=== PATIENT | female | born 1960 | race Caucasian/White ===

== ENCOUNTER → 2018-01-20 | Outpatient (CLI) | payer OTHER | LOC: ULTRA 10:58 | DX: R10.31 Right lower quadrant pain (principal); R10.2 Pelvic and perineal pain ==

== ENCOUNTER → 2018-06-22 | Outpatient (CLI) | payer OTHER | LOC: BC 10:40 → RAD 10:40 | DX: Z12.31 Encounter for screening mammogram for malignant neoplasm of breast (principal); M43.22 Fusion of spine, cervical region; M50.33 Other cervical disc degeneration, cervicothoracic region; M43.12 Spondylolisthesis, cervical region; R53.82 Chronic fatigue, unspecified; E78.00 Pure hypercholesterolemia, unspecified; Z79.899 Other long term (current) drug therapy ==

== ENCOUNTER → 2018-08-21 | Outpatient (CLI) | payer OTHER | LOC: CAT 14:55 | DX: Z13.6 Encounter for screening for cardiovascular disorders (principal); E78.00 Pure hypercholesterolemia, unspecified; I25.10 Atherosclerotic heart disease of native coronary artery without angina pectoris ==

== ENCOUNTER → 2018-08-21 | Outpatient (CLI) | payer OTHER | LOC: RAD 14:53 | DX: R07.9 Chest pain, unspecified (principal) ==

== ENCOUNTER → 2018-10-14 | Outpatient (CLI) | payer OTHER ==
[~2018-10-14] VITALS: Ht 170.2 cm; Wt 62.1 kg
[~2018-10-14] MED LIST: B COMPLEX1 EACH PO; FLONASE 0.05%50 MCG NASAL; LIPITOR 20 MG T20 M1 PO; MEDROLDOSEPACK PO; MULTI VITAMIN1 EACH PO; NEURONTIN300 MG PO; ONDANSETRON HCL4 M2 PO; SULINDAC 150 M150 MG PO; SYSTANE 0.3-0.415 ML OPHTHALMIC; TYLENOL EXTRA500 MG PO; VERAPAMIL HCL120 MG PO; VITAMIN D3400 UNIT PO; WELLBUTRIN SR150 MG PO; ZANAFLEX4 MG PO; ZYRTEC10 M4 PO; ZYRTEC10 M5 PO
--- NOTE | ~2018-10-14 | HPC ---
[facility] [address] [place] [address] PAIN MANAGEMENT CONSULTATION Name: NONI PATEL [facility] [id number] Admission: 10/14/18 ������������������ Attend Phys: Roslyn Perales MD Discharge: ������������������ Date of : 60 Report #: [id number] THIS REPORT FOR: //name// CC: Roslyn Hernandez MD DATE OF SERVICE: 10/14/2018 CHIEF COMPLAINT: The pain improved a lot with the Medrol Dosepak, was started to come back after I stopped it. HISTORY: The patient is a 57-year-old female who has seen in the pain clinic because of chronic neck pain. She has noted some improvement in her pain after the Medrol Dosepak. States that she was able to rotate her head from side to side and look up and down better after the Medrol Dosepak. After she took the last tablet. She has noticed a worsening of her pain and it seems to be reverting to it is old level of discomfort. She has had fusion of C3 through C7 as you may recall and noted that her pain became worse over the last 4 months. Notes that because of the arthritic changes in her head, rotating her head from side to side is limited. This makes driving more problematic. Continues to take the Clinoril. ALLERGIES: PENICILLIN AND ASPIRIN. MEDICATIONS: Systane 0.3/0.4% eyedrops p.r.n., Flonase 0.05% nasal spray b.i.d., Zyrtec 10 mg, Zanaflex 4 mg t.i.d., vitamin D3 4000 units, multivitamins, vitamin B complex, Tylenol Extra Strength 500 mg q. 6 hours, Lipitor 20 mg, sulindac 150 mg, Wellbutrin-SR 150 mg, verapamil 120 mg, and Zofran 4 mg. PAIN CLINIC ASSESSMENT/PQRS: 1. History of osteoarthritis involving her neck with changes. The patient is not being treated for rheumatoid arthritis. 2. Height 5 feet 7 inches, weight 136 pounds, BMI is 21.4. 3. Vital signs: Blood pressure 117/68, pulse 54, respiratory rate 14, room air saturation 98%. 4. Pain intensity 09/23. 5. Fall history. The patient has not fallen in the last 3 months. 6. Blood thinner. The patient is not on a blood thinning medication. 7. Hypertension. The patient is not being treated for hypertension. 8. Opioids greater than 6 weeks. The patient is not on a chronic opioid medication. 9. Risk assessment tool. 10. Functional assessment tool. 11. Recreational drug use. The patient denies use of recreational drugs. [address] [address] PAIN MANAGEMENT CONSULTATION Name: JORGENONI [facility] #[facility] [id number] Admission: 10/14/18 ������������������ Attend Phys: Roslyn Perales MD Discharge: ������������������ Date of : 60 Report #: [id number] 12. Tobacco: The patient denies use of tobacco. 13. Alcohol: The patient drinks alcoholic beverages on occasion. PHYSICAL EXAMINATION: GENERAL: The patient is a well-developed, well-nourished white female. Appears her stated age. She is alert and oriented x 3. Affect is appropriate. Speech is fluent. HEENT: Normocephalic, atraumatic. Extraocular eye muscles intact. The patient has some significant in movement of her neck secondary to C3 through C7 fusion. Complains of some pain and discomfort in her shoulders down into her arms. HEART: Regular rate. ABDOMEN: Nontender. CHEST: Clear to auscultation. EXTREMITIES: Muscle strength is judged to be 5-/5 for the major muscle groups in the upper extremity. Lower extremity judged to be 5/5 in lower extremity without significant scoliosis, kyphosis, or lordosis. Well-healed scar in the lower portion of her back. Deep tendon reflexes for the left and right biceps +1. IMPRESSION: 1. Cervical radiculopathy involving the left arm with flare up about 4 months ago, improve with a Medrol Dosepak for a week or so. 2. Hyperlipidemia. 3. Nicotine dependence. 4. Hypertension. 5. Arthritis. 6. History of colonic polyp. 7. Lumbar stenosis with neurogenic claudication, ovarian. 8. History of ovarian cyst. 9. Pancreatitis in the past. 10. Uterine fibroids. RECOMMENDATIONS: We will try the patient on gabapentin 300 mg t.i.d. and increase this as tolerated. We explained to the patient that sometimes it might be 1800 mg before some might note some effectiveness with use of gabapentin. We discussed the risks and benefits of the procedure as well as some of the side effects. She will try the medication with hopes that things will improve. We explained that chronic use of steroid medication on a long-term basis would probably develop symptoms consistent with chronic use of steroid medications. [facility] [address] [place] [address] PAIN MANAGEMENT CONSULTATION Name: NONI PATEL Room #: REG CLI Estefanía#: [id number] Admission: 10/14/18 ������������������ Attend Phys: Roslyn Perales MD Discharge: ������������������ Date of : 60 Report #: [id number] We would like to thank you for letting us participate in her care. We hope she continues to improve. ��������������������������������������������� ���������������������������������������� By: ��������������������������������������������� 1422 1721 Roslyn Perales MD /PMT
[2018-10-14 11:52] VITALS: BP 117/68
--- NOTE | 2018-10-14 12:05 | NUR ---
Pain Clinic Assessment: 1. History of Osteoarthritis: SPINE B/L HANDS B/L SHOULDERS LEFT KNEE History of Rheumatoid Arthritis: NONE 2. Height: 5 ft. 7 in. 170.2 cm. Weight: 136.8 lb. oz. 62.052 kg. Patient's BMI: 21.4 3. Vital Signs: BP: 117/68 Pulse: 54 Resp: 14 Temp: 02 Sat: 98 ECG Mon: 4. Pain Intensity: 4 5. Fall Risk: Dizziness: Y Needs help standing or walking: N Fallen in the last 3 months: N Fall risk comments: 6. Patient on Blood Thinner: None 7. History of Hypertension: Y 8. Opioid Therapy greater than 6 weeks: Opiate Contract Signed: 9. Risk Assessment Tool Provided: 10. Functional Assessment Tool: 11. Recreational Drug Use: Never Drug Type: Tobacco Use: Never Smoker Tobacco Type: Amount or Packs/day: How Many Years: Alcohol Use: Yes Frequency: Quant:
== END ==
LOC: PAIN 07:20
DX: M54.12 Radiculopathy, cervical region (principal); M48.062 Spinal stenosis, lumbar region with neurogenic claudication; M19.90 Unspecified osteoarthritis, unspecified site; E78.5 Hyperlipidemia, unspecified; I10 Essential (primary) hypertension; D25.9 Leiomyoma of uterus, unspecified; F17.210 Nicotine dependence, cigarettes, uncomplicated; K86.1 Other chronic pancreatitis; Z86.010 Personal history of colon polyps; Z87.42 Personal history of other diseases of the female genital tract

== ENCOUNTER → 2019-01-08 | Outpatient (CLI) | payer OTHER ==
[~2019-01-08] VITALS: Ht 170.2 cm; Wt 59.4 kg
[~2019-01-08] MED LIST changes: +MOBIC15 MG PO; +ROBAXIN500 MG PO
--- NOTE | ~2019-01-08 | HPC ---
[facility] [place] [address] PAIN MANAGEMENT CONSULTATION Name: NONI PATEL Room #: REG [facility] Joel.#: [id number] Admission: 01/08/19 ������������������ Attend Phys: Roslyn Perales MD Discharge: ������������������ Date of : 60 Report #: [id number] THIS REPORT FOR: //name// CC: Roslyn Hernandez DATE OF SERVICE: 01/08/2019 CHIEF COMPLAINT: Left neck pain and left arm pain. HISTORY: The patient is a 58-year-old female who has been followed in the pain clinic because of chronic neck and arm pain. 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 She has used gabapentin. She still has pain, which is problematic. She takes 900 mg at bedtime. As you may recall, she has had a number of surgeries. She had surgery in 1997 and in 2004. She has undergone fusion of her neck at the C3 through C7 area. He has limited rotation and movement of her neck because of the surgeries. ALLERGIES: ASPIRIN, PENICILLIN. CURRENT MEDICATIONS: Systane 0.3/0.4% eyedrops p.r.n., Flonase 0.05% nasal spray b.i.d., Zyrtec 10 mg, Zanaflex 4 mg t.i.d., vitamin D3 400 units, multivitamins, vitamin B complex, Tylenol Extra Strength 500 mg q.6 hours, Lipitor 20 mg, sulindac 150 mg, Wellbutrin 150 mg, verapamil 120 mg, Zofran 4 mg. PAIN CLINIC ASSESSMENT/PQRS: 1. The patient has history of osteoarthritis involving her neck, cervical spine. Has some discomfort in her left hand and shoulder. She is not being treated for rheumatoid arthritis. 2. Height 5 feet 7 inches, weight 131 pounds, BMI is 20. 3. VITAL SIGNS: Blood pressure 137/81, pulse 53, respiratory rate is 14, and saturation is 100%. 4. Pain intensity 3-4/10. 5. Fall history: The patient has not fallen in the last 3 months. 6. Blood thinner. The patient is not on a blood thinning medication. 7. Hypertension. The patient is being treated for hypertension. 8. Opioids greater than 6 weeks. The patient is not on opioid regimen. 9. Risk assessment tool, low for opioid use. 10. Functional assessment tool 47/. 11. Recreational drug use. The patient denies use of recreational drugs. 12. Alcohol: The patient occasionally drinks alcoholic beverages. PHYSICAL EXAMINATION: GENERAL: The patient is a well-developed, well-nourished white female. Appears her stated age. She is alert and oriented x 3. Her affect is appropriate. [address] [address] PAIN MANAGEMENT CONSULTATION Name: JORGENONI Room #: REG CL Estefanía#: [id number] Admission: 01/08/19 ������������������ Attend Phys: Roslyn Perales MD Discharge: ������������������ Date of : 60 Report #: [id number] Speech is fluent. HEENT: Normocephalic, atraumatic. Mucous membranes are moist. NECK: With limited range of motion. She has had fusion at C3 through C6. Flexion and extension, left and right lateral rotation limited. The patient continues to have pain when she lifts her neck and changes position. The patient has a well-healed scar on the anterior portion of her neck. The patient without JVD or adenopathy. HEART: Regular rate. ABDOMEN: Nontender. CHEST: Clear. EXTREMITIES: Upper extremity muscle strength judged to be 5-/5 for the major muscle groups in the upper extremity. Lower extremity muscle strength appears to be 5-/5 for the lower extremities. The patient without significant scoliosis, kyphosis or lordosis. She has a well-healed scar in the lower portion of her back. IMPRESSION: 1. Cervical radiculopathy involving the left arm. 2. Hyperlipidemia. 3. Nicotine dependence. 4. Hypertension. 5. Arthritis. 6. History of colonic polyps. 7. Lumbar stenosis with neurogenic claudication. 8. Pancreatitis in the past. 9. Uterine fibroids. 10. Ovarian cyst. RECOMMENDATIONS: We discussed treatment options with the patient. At this juncture, we will continue with conservative approach. The patient has been using the gabapentin. She has had some increased sedation with use of the medication. She continues to have pain in the neck and shoulder area. She has used Robaxin in the past. She would like to try this in place of Zanaflex. She also feels that Sulindac is helpful, but use of Mobic 15 mg daily, seems to have been helpful in the past and she would like to give this medication another try. She has had some sedation with the gabapentin. We will have her try a test dose of Gralise, this is gabapentin, slow release. She will take 1800 mg of this medication. She will take it with the evening meal. She will note its efficacy. Hopefully, she will find that this medication is beneficial. Hopefully, the Robaxin will be helpful. Hopefully, the Meloxicam will be beneficial as well. The patient will call us in a couple of weeks and tell us how things are going. If she finds that this medication is more beneficial, we will continue with the Gralise to help control her pain and discomfort. We [address] [place] [address] PAIN MANAGEMENT CONSULTATION Name: NONI PATEL Room #: REG [facility]..#: [id number] Admission: 01/08/19 ������������������ Attend Phys: Roslyn Perales MD Discharge: ������������������ Date of : 60 Report #: [id number] would like to thank you for letting us participate in her care. We hope she continues to improve. ��������������������������������������������� ���������������������������������������� By: ��������������������������������������������� 1620 0440 Roslyn Perales MD /nt
[2019-01-08 12:49] VITALS: BP 137/81
--- NOTE | 2019-01-08 12:55 | NUR ---
Pain Clinic Assessment: 1. History of Osteoarthritis: SPINE B/L HANDS B/L SHOULDERS LEFT KNEE History of Rheumatoid Arthritis: NONE 2. Height: 5 ft. 7 in. 170.2 cm. Weight: 131.0 lb. oz. 59.421 kg. Patient's BMI: 20.5 3. Vital Signs: BP: 137/81 Pulse: 53 Resp: 14 Temp: 02 Sat: 100 ECG Mon: 4. Pain Intensity: 3-4 5. Fall Risk: Dizziness: N Needs help standing or walking: N Fallen in the last 3 months: N Fall risk comments: 6. Patient on Blood Thinner: None 7. History of Hypertension: Y 8. Opioid Therapy greater than 6 weeks: N Opiate Contract Signed: 9. Risk Assessment Tool Provided: LOW RISK 08/16 10. Functional Assessment Tool: 11. Recreational Drug Use: Never Drug Type: Tobacco Use: Never Smoker Tobacco Type: Amount or Packs/day: How Many Years: Alcohol Use: Yes Frequency: Monthly Quant:
== END ==
LOC: PAIN 06:48
DX: M54.12 Radiculopathy, cervical region (principal); M48.062 Spinal stenosis, lumbar region with neurogenic claudication; M79.602 Pain in left arm; I10 Essential (primary) hypertension; M19.90 Unspecified osteoarthritis, unspecified site; F17.200 Nicotine dependence, unspecified, uncomplicated; D25.9 Leiomyoma of uterus, unspecified; E78.5 Hyperlipidemia, unspecified

== ENCOUNTER → 2019-08-02 | Outpatient (CLI) | payer OTHER | LOC: PAIN 07-14 06:58 → BC 11:16 | DX: Z12.31 Encounter for screening mammogram for malignant neoplasm of breast (principal) ==

== ENCOUNTER → 2020-01-05 | Outpatient (CLI) | payer OTHER ==
[~2020-01-05] VITALS: Ht 170.2 cm; Wt 56.8 kg
[~2020-01-05] MED LIST changes: +METHADONE HCL 110 M1 PO; +MOVE FREE JOIN1 EACH PO; +ROBAXIN 750 MG750 MG PO
[2020-01-05 10:20] VITALS: BP 122/58
--- NOTE | 2020-01-05 10:43 | NUR ---
Pain Clinic Assessment: 1. History of Osteoarthritis: SPINE B/L HANDS B/L SHOULDERS LEFT KNEE History of Rheumatoid Arthritis: NONE 2. Height: 5 ft. 7 in. 170.2 cm. Weight: 125.2 lb. oz. 56.790 kg. Patient's BMI: 19.6 3. Vital Signs: BP: 122/58 Pulse: 61 Resp: 14 Temp: 02 Sat: 100 ECG Mon: 4. Pain Intensity: 3 5. Fall Risk: Dizziness: Y Needs help standing or walking: N Fallen in the last 3 months: N Fall risk comments: 6. Patient on Blood Thinner: None 7. History of Hypertension: Y 8. Opioid Therapy greater than 6 weeks: N Opiate Contract Signed: 9. Risk Assessment Tool Provided: LOW RISK 08/16 10. Functional Assessment Tool: 11. Recreational Drug Use: Never Drug Type: Tobacco Use: Former Smoker Tobacco Type: Amount or Packs/day: How Many Years: Alcohol Use: Yes Frequency: Special Occasions Quant:
--- NOTE | 2020-01-18 14:10 | HPC ---
[facility] [place] [address] PAIN MANAGEMENT CONSULTATION Name: NONI PATEL Room #: REG [facility].#: [id number] Admission: 01/05/20 Attend Phys: Roslyn Perales MD Discharge: Date of : 60 Report #: [id number] THIS REPORT FOR: cc: Randy Hernandez,Roslyn Rodriguez MD ~ CC: Roslyn Hernandez DATE OF SERVICE: 01/05/2020 CHIEF COMPLAINT: Neck pain, which has worsened. HISTORY: The patient is a 59-year-old female who has been followed in the pain clinic. As you may recall, she has chronic neck and arm pain. 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 As you may recall, she has had significant surgery in her neck. She had surgery in 2004 as well as 1997. This has left her with a fusion of her neck from C3 through C7. She has limited rotation in movement. This is because of the previous surgeries. She finds that her neck pain has increased. She feels that tizanidine may not be working as well. ALLERGIES: ASPIRIN, PENICILLIN. CURRENT MEDICATIONS: Systane 0.3/0.4% eyedrops p.r.n., Flonase 0.05% nasal spray b.i.d., Zyrtec 10 mg, Zanaflex 4 mg t.i.d., vitamin D3 400 units, multivitamins, vitamin B complex, Tylenol Extra Strength 500 mg every 6 hours, Lipitor 20 mg, sulindac 150 mg, Wellbutrin 150 mg, verapamil 120 mg, Zofran 4 mg. PAIN CLINIC ASSESSMENT AND PQRS: 1. The patient has a history of osteoarthritis involving her neck with cervical changes and osteoarthritis. 2. The patient is not being treated for rheumatoid arthritis. 3. Height 5 feet 7 inches, weight 125 pounds, BMI is 19. 4. Vital Signs: Blood pressure is 122/58, pulse 61, respiratory rate 14, room air saturation is 100%. 5. Pain intensity 08/23. 6. Fall history: The patient has not fallen in the last 3 months. 7. Blood thinner. The patient is not on a blood thinning medication. 8. Hypertension. The patient is being treated for hypertension. 9. Opioids greater than 6 weeks. The patient receives medication from her primary. 10. Risk assessment tool, low. 11. Functional assessment tool 57/70. 12. Recreational drug [place] [address] PAIN MANAGEMENT CONSULTATION Name: NONI PATEL Room #: REG [facility]#: [id number] Admission: 01/05/20 Attend Phys: Roslyn Perales MD Discharge: Date of : 60 Report #: [id number] 13. Tobacco: The patient is a former smoker. 14. Alcohol: The patient occasionally drinks alcoholic beverages on special occasions. PHYSICAL EXAMINATION: GENERAL: The patient is a well-developed, well-nourished white female. Appears her stated age. She is alert and oriented x 3. Her affect is appropriate. Speech is fluent. HEENT: Normocephalic, atraumatic. Extraocular eye muscles intact. Sclerae nonicteric. Mucous membranes are moist. The patient is wearing a mask. NECK: Limited range of motion. She has fusion from C3 through C6. Left and right lateral rotation is limited. The patient has pain when she lifts her neck and changes positions. We notes some [id number] sounds with movement of her neck. The patient has a well-healed scar in the anterior portion of her neck. The patient without JVD or adenopathy. HEART: Regular rate. ABDOMEN: Nontender. CHEST: Clear. EXTREMITIES: Upper extremity muscle strength judged to be 5-/5 for the major muscle groups in the upper extremity. Lower extremity muscle strength judged to be 5-/5 for the lower extremities. The patient without significant scoliosis, kyphosis or lordosis. She has a well-healed scar in the lower portion of her back. IMPRESSION: 1. Cervical radiculopathy history involving the left arm in the past. 2. Hyperlipidemia. 3. Nicotine dependence. 4. Hypertension. 5. Arthritis. 6. History of colonic polyps. 7. Lumbar stenosis with neurogenic claudication. 8. Pancreatitis in the past. 9. Uterine fibroids. 10. History of ovarian cyst. RECOMMENDATION: The patient feels that she would like to try Robaxin instead of tizanidine. The patient tries 750 mg 1 p.o. b.i.d. She will also try Celebrex and monitor her GI tract. Given that the patient continues to have pain and discomfort, which is quite problematic and beginning to limit her activities we have discussed the possibility of methadone as an opioid to help with her pain. We discussed the benefits of methadone. It has properties, which other opioids do not have. It can be helpful with nerve pain. We will have the patient try methadone 5 mg b.i.d. She will also continue with the Robaxin 750 mg. We will monitor her progress. Hopefully, she will find that this medication is helpful and enable her to engage in activities with less pain and discomfort. [address] [address] PAIN MANAGEMENT CONSULTATION Name: NONI PATEL [facility] [id number] Admission: 01/05/20 Attend Phys: Roslyn Perales MD Discharge: Date of : 60 Report #: [id number] We would like to thank you for letting us participate in her care. We hope she continues to improve. <ELECTRONICALLY SIGNED> By: Roslyn Perales MD 01/18/20 1410 [id number] [id number] Roslyn Perales MD /nt
== END ==
LOC: PAIN 07:03
PROVIDERS: ATTEND Anesthesiology Pain Medicine
DX: M48.061 Spinal stenosis, lumbar region without neurogenic claudication (principal); M19.90 Unspecified osteoarthritis, unspecified site; M54.12 Radiculopathy, cervical region; E78.5 Hyperlipidemia, unspecified; I10 Essential (primary) hypertension; F17.200 Nicotine dependence, unspecified, uncomplicated; Z90.710 Acquired absence of both cervix and uterus; Z79.891 Long term (current) use of opiate analgesic

== ENCOUNTER → 2020-02-04 | Outpatient (CLI) | payer OTHER ==
[~2020-02-04] VITALS: Ht 170.2 cm; Wt 56.0 kg
[~2020-02-04] MED LIST changes: +CELEBREX 200 M200 MG PO
[2020-02-04 09:06] VITALS: BP 132/75
--- NOTE | 2020-02-04 09:07 | NUR ---
Pain Clinic Assessment: 1. History of Osteoarthritis: SPINE B/L HANDS B/L SHOULDERS LEFT KNEE History of Rheumatoid Arthritis: NONE 2. Height: 5 ft. 7 in. 170.2 cm. Weight: 123.4 lb. oz. 55.974 kg. Patient's BMI: 19.3 3. Vital Signs: BP: 132/75 Pulse: 61 Resp: 14 Temp: 02 Sat: 98 ECG Mon: 4. Pain Intensity: 1-2 5. Fall Risk: Dizziness: N Needs help standing or walking: N Fallen in the last 3 months: N Fall risk comments: 6. Patient on Blood Thinner: None 7. History of Hypertension: Y 8. Opioid Therapy greater than 6 weeks: N Opiate Contract Signed: 02/04/20 9. Risk Assessment Tool Provided: LOW RISK 08/16 10. Functional Assessment Tool: 11. Recreational Drug Use: Never Drug Type: Tobacco Use: Former Smoker Tobacco Type: Amount or Packs/day: How Many Years: Alcohol Use: Yes Frequency: Quant:
--- NOTE | 2020-02-16 14:41 | HPC ---
[facility] [place] [address] PAIN MANAGEMENT CONSULTATION Name: NONI PATEL Room #: REG [facility]#: [id number] Admission: 02/04/20 Attend Phys: Roslyn Perales MD Discharge: Date of : 60 Report #: [id number] THIS REPORT FOR: cc: Randy Hernandez,Roslyn Rodriguez MD ~ CC: Roslyn Hernandez DATE OF SERVICE: 02/04/2020 CHIEF COMPLAINT: Neck and left arm pain. HISTORY: The patient is a 59-year-old female, who has been followed in the Pain Clinic. As you recall, she has had chronic neck pain. She has had significant surgery. She had surgery in 2004 as well as 1997. She has undergone fusion of her neck from C3 through C7. She has limited rotation. She has been helped with her current medication regimen. She feels that methadone has been helpful. She rates her pain as a 1/10 today. She notes that the medication lasts for most of the day. She takes Tylenol in the evening. Overall, this current medical regimen has been working reasonably well and she would like to continue it. She has had no complications. ALLERGIES: ASPIRIN, PENICILLIN. CURRENT MEDICATIONS: Systane 0.3/0.4% eyedrops, Flonase 0.05% nasal spray b.i.d., Zyrtec 10 mg, Zanaflex 4 mg t.i.d., vitamin D3 400 units, multivitamins, vitamin B complex, Tylenol Extra Strength 500 mg p.r.n., Lipitor 20 mg, sulindac 150 mg, Wellbutrin 150 mg, verapamil 120 mg, Zofran 4 mg, methadone 10 mg daily. PAIN CLINIC ASSESSMENT AND PQRS: 1. The patient has a history of osteoarthritis involving her neck with cervical changes and osteoarthritis. 2. The patient is not being treated for rheumatoid arthritis. 3. Height 5 feet 7 inches, weight 123 pounds, BMI is 19. 4. Vital signs: Blood pressure 132/75, pulse 61, respiratory rate 14, room air saturation 98%. 5. Pain intensity: 06/25. 6. Fall history: The patient has not fallen since we saw her last. 7. Blood thinner: The patient is not on a blood thinning medication. 8. Hypertension: The patient is being treated for hypertension. 9. Opioids therapy greater than 6 weeks: The patient receives medications from the Pain Clinic. 10. Risk assessment tool: Low risk for opioid use. 11. Functional assessment tool: 57/70. 12. Recreational drug use: [place] [address] PAIN MANAGEMENT CONSULTATION Name: NONI PATEL Room #: REG [facility] Estefanía#: [id number] Admission: 02/04/20 Attend Phys: Roslyn Perales MD Discharge: Date of : 60 Report #: [id number] 13. Tobacco: The patient is a former smoker. 14. Alcohol: The patient occasionally drinks alcoholic beverages. PHYSICAL EXAMINATION: GENERAL: The patient is a well-developed, well-nourished, white female. Appears her stated age. She is alert and oriented x 3. Her affect is appropriate. Speech is fluent. HEENT: Normocephalic, atraumatic. Extraocular eye muscles intact. Sclerae nonicteric. Mucous membranes are moist. The patient is wearing a facial covering. NECK: The patient exhibits limited range of motion. She has had fusion from C3 through C6. Left and right lateral rotation is limited. The patient has some pain when she lifts her neck and changes position. Notes some feds-qw-ofqu sounds with movement of her neck. The patient has a well-healed scar in the anterior portion of her neck without JVD or adenopathy. HEART: Regular rate. ABDOMEN: Nontender. CHEST: Clear. MUSCULOSKELETAL: Upper extremity muscle strength is judged to be 5-/5 for the major muscle groups in the upper extremity. Lower extremity muscle strength is judged to be 5-/5 for the major muscle groups in the lower extremity. The patient is without significant scoliosis, kyphosis or lordosis. She has a well-healed scar in the lower portion of her back. IMPRESSION: 1. Cervical radiculopathy history involving the left arm in the past. 2. Hyperlipidemia. 3. Nicotine dependence. 4. Hypertension. 5. Arthritis. 6. History of colonic polyps. 7. Lumbar stenosis with neurogenic claudication. 8. Pancreatitis in the past. 9. Uterine fibroids. 9. History of ovarian cyst. RECOMMENDATIONS: We discussed treatment options with the patient. At this juncture, she feels that the methadone has been helpful, it lasts a reasonable amount of time up to about 12 hours. After that, she is taking Tylenol and finds that that seems to be a reasonably good formula. She continues with Celebrex. She will monitor her GI tract. She is aware that opioid medications can become more problematic for some people, they can develop dependency and addiction. The patient is showing no signs of addiction, no signs of dependency. She also will continue with Robaxin for muscle relaxation. 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 She feels that the use of methadone has made her activities of daily living much more [address] [place] [address] PAIN MANAGEMENT CONSULTATION Name: NONI PATEL Room #: REG [facility].#: [id number] Admission: 02/04/20 Attend Phys: Roslyn Perales MD Discharge: Date of : 60 Report #: [id number] endurable. A script for her medications have been rewritten. She will call us if she has any concerns. We would like to thank you for letting us participate in her care. We hope she continues to improve. <ELECTRONICALLY SIGNED> By: Roslyn Perales MD 02/16/20 [id number] [id number] Roslyn Perales MD /nt
== END ==
LOC: PAIN 06:45
PROVIDERS: ATTEND Anesthesiology Pain Medicine
DX: M54.12 Radiculopathy, cervical region (principal); E78.5 Hyperlipidemia, unspecified; I10 Essential (primary) hypertension; M19.90 Unspecified osteoarthritis, unspecified site; M48.062 Spinal stenosis, lumbar region with neurogenic claudication; D25.9 Leiomyoma of uterus, unspecified; F17.200 Nicotine dependence, unspecified, uncomplicated; Z87.42 Personal history of other diseases of the female genital tract; Z87.19 Personal history of other diseases of the digestive system; Z86.010 Personal history of colon polyps; Z88.8 Allergy status to other drugs, medicaments and biological substances; Z79.899 Other long term (current) drug therapy

== ENCOUNTER → 2020-03-01 | Outpatient (CLI) | payer OTHER ==
[~2020-03-01] VITALS: Ht 170.2 cm; Wt 56.5 kg
--- NOTE | ~2020-03-01 | HPC ---
[facility] [place]ena [place] [address] PAIN MANAGEMENT CONSULTATION Name: NONI PATEL Room #: REG [facility].#: [id number] Admission: 03/01/20 Attend Phys: Roslyn Perales MD Discharge: Date of : 60 Report #: [id number] THIS REPORT FOR: cc: Randy Hernandez,Roslyn Rodriguez MD ~ CC: Roslyn Hernandez DATE OF SERVICE: 03/01/2020 CHIEF COMPLAINT: Left arm and neck pain. HISTORY: The patient is a 59-year-old female who has been followed in the pain clinic because of chronic pain. As you may recall, she has had surgery on a number of occasions. She had surgery in 2004. She also had surgery in 1997. She has undergone a fusion in the neck area. She has been fused from C3 through C7. She does have limited range of motion. She returns today indicating that her medications are helpful. She has noticed some recurrence of her pain during the course of the day, but overall, still feels that things are going much better than before her current medical regimen. She has returned today with the hopes of having her medications renewed. She has had no complication from their use. She does find that the Robaxin is beneficial. She has been using it daily. She has also found Tylenol helpful. ALLERGIES: ASPIRIN, PENICILLIN. CURRENT MEDICATIONS: Systane 0.3/0.4% eyedrops, Flonase 0.05% nasal spray b.i.d., Zyrtec 10 mg, Zanaflex 4 mg t.i.d., vitamin D3 400 units, multivitamins, vitamin B complex, Tylenol Extra Strength 500 mg, Lipitor 20 mg, sulindac 150 mg, Wellbutrin 150 mg, verapamil 120 mg, Zofran 4 mg, methadone 10 mg daily. PAIN CLINIC ASSESSMENT/PQRS: 1. The patient has history of osteoarthritis involving her neck and cervical changes because of osteoarthritis. 2. The patient is not being treated for rheumatoid arthritis. 3. Height 5 feet 7 inches, weight 124 pounds, BMI is 19. 4. Vital signs: Blood pressure 116/71, pulse 65, respiratory rate 14, room air saturation 100%. 5. Pain intensity 06/25. 6. Fall history: The patient has not fallen in the last 3 months. 7. Blood thinner. The patient is not on a blood thinning medication. 8. History of hypertension. The patient is being treated for hypertension. 9. Opioids greater than 6 weeks. The patient receives medication from the pain clinic. 10. Risk assessment tool, [place] [address] PAIN MANAGEMENT CONSULTATION Name: NONI PATEL Carrillo Room #: REG [facility] Estefanía#: [id number] Admission: 03/01/20 Attend Phys: Roslyn Perales MD Discharge: Date of : 60 Report #: [id number] 11. Functional assessment tool 57/70. 12. Recreational drug use. The patient denies. 13. Tobacco: The patient is a former smoker. 14. Alcohol: The patient occasionally drinks alcoholic beverages. PHYSICAL EXAMINATION: GENERAL: The patient is a well-developed, well-nourished white female. Appears her stated age. She is alert and oriented x 3. Her affect is appropriate. Speech is fluent. HEENT: Normocephalic, atraumatic. Extraocular eye muscles intact. Sclerae nonicteric. Mucous membranes are moist. The patient is wearing a facial covering. NECK: With decreased range of motion. The patient has had a fusion from C3 through C6. Left and right lateral motion was limited. The patient notes increased pain and discomfort when she extends her neck and changes position. Complains of some pyro-rv-ymii sounds with movement of her neck. She has a well-healed scar in the anterior portion of her neck without JVD or adenopathy. HEART: Regular rate. ABDOMEN: Nontender. CHEST: Clear. MUSCULOSKELETAL: Upper extremity muscle strength judged to be 5-/5 for the major muscle groups in the upper extremity. Lower extremity muscle strength 5-/5 for the major muscle groups in the lower extremity. The patient without significant scoliosis, kyphosis or lordosis. She has a well-healed scar in the lower portion of her back as well. IMPRESSION: 1. Cervical radiculopathy with history of left arm pain in the past. 2. Hyperlipidemia. 3. Nicotine dependence. 4. Hypertension. 5. Arthritis. 6. History of colonic polyps. 7. Lumbar stenosis with neurogenic claudication. 8. Pancreatitis in the past. 9. Uterine fibroids. 10. History of ovarian cyst. RECOMMENDATIONS: We discussed treatment options with the patient. At this juncture, we will continue with her medications. She feels that methadone continues to be helpful. She feels that Tylenol is beneficial. She has noticed that the Robaxin is helpful. She has been taking it daily. Now, she is taking it twice a day. She is not having any real problems with her GI tract. She will call us if she has any concerns. Again, we have discussed the problems with opioid medications. They can become less effective as time goes on because of development of tolerance. A script for her medications have been rewritten [place] [id number] PAIN MANAGEMENT CONSULTATION Name: NONI PATEL Room #: REG [facility].#: [id number] Admission: 03/01/20 Attend Phys: Roslyn Perales MD Discharge: Date of : 60 Report #: [id number] for Robaxin 750 mg 1 p.o. t.i.d., and methadone 10 mg one p.o. The patient will call us if she has any concerns. We would like to thank you for letting us participate in her care. We hope she continues to improve. By: [id number] Roslyn Perales MD /nt
[2020-03-01 10:13] VITALS: BP 116/71
--- NOTE | 2020-03-01 10:27 | NUR ---
Pain Clinic Assessment: 1. History of Osteoarthritis: SPINE B/L HANDS B/L SHOULDERS LEFT KNEE History of Rheumatoid Arthritis: NONE 2. Height: 5 ft. 7 in. 170.2 cm. Weight: 124.6 lb. oz. 56.518 kg. Patient's BMI: 19.5 3. Vital Signs: BP: 116/71 Pulse: 65 Resp: 14 Temp: 02 Sat: 100 ECG Mon: 4. Pain Intensity: 1 5. Fall Risk: Dizziness: N Needs help standing or walking: N Fallen in the last 3 months: N Fall risk comments: 6. Patient on Blood Thinner: None 7. History of Hypertension: Y 8. Opioid Therapy greater than 6 weeks: N Opiate Contract Signed: 02/04/20 9. Risk Assessment Tool Provided: LOW RISK 08/16 10. Functional Assessment Tool: 11. Recreational Drug Use: Never Drug Type: Tobacco Use: Former Smoker Tobacco Type: Amount or Packs/day: How Many Years: Alcohol Use: Yes Frequency: Quant:
== END ==
LOC: PAIN 06:53
PROVIDERS: ATTEND Anesthesiology Pain Medicine
DX: M54.12 Radiculopathy, cervical region (principal); E78.5 Hyperlipidemia, unspecified; I10 Essential (primary) hypertension; M19.90 Unspecified osteoarthritis, unspecified site; M48.062 Spinal stenosis, lumbar region with neurogenic claudication; D25.9 Leiomyoma of uterus, unspecified; F17.200 Nicotine dependence, unspecified, uncomplicated; Z86.010 Personal history of colon polyps; Z87.19 Personal history of other diseases of the digestive system; Z88.8 Allergy status to other drugs, medicaments and biological substances; Z79.899 Other long term (current) drug therapy

== ENCOUNTER → 2020-03-29 | Outpatient (CLI) | payer OTHER ==
[~2020-03-29] VITALS: Ht 172.7 cm; Wt 56.2 kg
[2020-03-29 10:52] VITALS: BP 155/76
--- NOTE | 2020-03-29 11:16 | NUR ---
Pain Clinic Assessment: 1. History of Osteoarthritis: SPINE B/L HANDS B/L SHOULDERS LEFT KNEE History of Rheumatoid Arthritis: NONE 2. Height: 5 ft. 8 in. 172.7 cm. Weight: 124.0 lb. oz. 56.246 kg. Patient's BMI: 18.9 3. Vital Signs: BP: 155/76 Pulse: 60 Resp: 16 Temp: 02 Sat: 100 ECG Mon: 4. Pain Intensity: 3 5. Fall Risk: Dizziness: N Needs help standing or walking: N Fallen in the last 3 months: N Fall risk comments: 6. Patient on Blood Thinner: None 7. History of Hypertension: Y 8. Opioid Therapy greater than 6 weeks: N Opiate Contract Signed: 02/04/20 9. Risk Assessment Tool Provided: LOW RISK 08/16 10. Functional Assessment Tool: 11. Recreational Drug Use: Never Drug Type: Tobacco Use: Former Smoker Tobacco Type: Amount or Packs/day: How Many Years: Alcohol Use: Yes Frequency: Monthly Quant: 1
--- NOTE | 2020-04-12 15:48 | HPC ---
[facility] [address] [place] [address] PAIN MANAGEMENT CONSULTATION Name: NONI PATEL Room #: REG [facility].#: [id number] Admission: 03/29/20 Attend Phys: Roslyn Perales MD Discharge: Date of : 60 Report #: [id number] CC: Roslyn Hernandez DATE OF SERVICE: 03/29/2020 CHIEF COMPLAINT: The pain is still much better than it was, but appears to be getting somewhat worse. HISTORY: The patient is a 59-year-old female who has been seen and followed in the pain clinic because of cervical radiculopathy. As you recall, she has had a significant surgery in her neck. She is fused from C3 through C7. She has limited range of motion. She finds that her medications have been helpful. Continues to have some throbbing, cramping and stabbing discomfort with spasms. Bending is limited. She has returned today for evaluation and renewal of her medications. ALLERGIES: ASPIRIN, PENICILLIN. CURRENT MEDICATIONS: Systane 0.3/0.4% eyedrops, Flonase 0.05% nasal spray b.i.d., Zyrtec 10 mg, Zanaflex 4 mg t.i.d., vitamin D 400 units, multivitamins, vitamin B complex, Tylenol Extra Strength 500 mg, Lipitor 20 mg, sulindac 150 mg, Wellbutrin 150 mg, verapamil 120 mg, Zofran 4 mg, methadone 10 mg daily. PAIN CLINIC ASSESSMENT/PQRS: 1. The patient has a history of osteoarthritis involving her neck and cervical changes causing osteoarthritis. 2. The patient is not being treated for rheumatoid arthritis. 3. Height 5 feet 7 inches, weight 124 pounds, BMI 18.9. 4. Vital signs: Blood pressure 155/76, pulse 60, respiratory rate 16, room air saturation 100%. 5. Pain intensity: 3-4/10. 6. Fall risk: The patient has not fallen in the last 3 months. 7. Blood thinner: The patient is not on a blood thinning medication. 8. Hypertension: The patient is being treated for hypertension. 9. Opioid therapy greater than 6 weeks: The patient receives medication from the pain clinic. 10. Risk assessment tool: Low for opioid use. 11. Functional assessment tool: 57/70. 12. Recreational drug use: The patient denies. 13. Tobacco: The patient is a former smoker. 14. Alcohol: The patient drinks about 1 alcoholic beverage per month. PHYSICAL EXAMINATION: GENERAL: The patient is a well-developed, well-nourished white female. Appears her stated age. She is alert and oriented x 3. Her affect is appropriate. Speech is fluent. HEENT: Normocephalic, atraumatic. Extraocular eye muscles intact. Sclerae are nonicteric. The patient is wearing a facial covering. NECK: With decreased range of motion secondary to fusion from C3 through C6. Left and right lateral motion limited, increased discomfort with flexion and extension of her neck. Complains of kvnm-zi-unml movement in her neck with grinding. She has a well-healed scar in the anterior portion of her neck without JVD or adenopathy. HEART: Regular rate. ABDOMEN: Nontender. CHEST: Clear. EXTREMITIES: Upper extremity muscle strength judged to be 5-/5 in the upper extremity. Lower extremity muscle strength 5-/5 for the major muscle groups in the lower extremity. The patient without significant scoliosis, kyphosis or lordosis. She has a well-healed scar in the lower portion of her back. IMPRESSION: 1. Cervical radiculopathy with history of left arm pain. 2. Hyperlipidemia. 3. Nicotine dependence. 4. Hypertension. 5. Arthritis. 6. History of colonic polyps. 7. Lumbar stenosis with neurogenic claudication. 8. Pancreatitis in the past. 9. Uterine fibroids. 10. History of ovarian cyst. RECOMMENDATIONS: We discussed treatment options with the patient. At this juncture, she feels that her medication is helpful, but is beginning to wane earlier than it did initially. She feels that a change in her medication could be beneficial. She would like to continue with Robaxin 750 mg b.i.d. We will increase the patient's methadone from 10 mg daily to 10 mg b.i.d. Hopefully, she will find that this medicine continues to be helpful and efficacious. She will call us if she has any concerns. We would like to thank you for letting us participate in her care. We hope she continues to improve. <ELECTRONICALLY SIGNED> By: Roslyn Perales MD 04/12/20 1548 [id number] Roslyn Perales MD /PMT
== END ==
LOC: PAIN 06:48
PROVIDERS: ATTEND Anesthesiology Pain Medicine
DX: M54.12 Radiculopathy, cervical region (principal); E78.5 Hyperlipidemia, unspecified; I10 Essential (primary) hypertension; M19.90 Unspecified osteoarthritis, unspecified site; M48.062 Spinal stenosis, lumbar region with neurogenic claudication; K85.90 Acute pancreatitis without necrosis or infection, unspecified; D25.9 Leiomyoma of uterus, unspecified; F17.200 Nicotine dependence, unspecified, uncomplicated; Z86.010 Personal history of colon polyps; Z87.42 Personal history of other diseases of the female genital tract; Z88.8 Allergy status to other drugs, medicaments and biological substances; Z79.899 Other long term (current) drug therapy

== ENCOUNTER → 2020-04-26 | Outpatient (CLI) | payer OTHER ==
[~2020-04-26] VITALS: Ht 172.7 cm; Wt 57.7 kg
[~2020-04-26] MED LIST changes: +AMITRIPTYLINE H10 M3 PO
--- NOTE | ~2020-04-26 | HPC ---
[facility] [place] [address] PAIN MANAGEMENT CONSULTATION Name: NONI PATEL Room #: REG [facility]#: [id number] Admission: 04/26/20 Attend Phys: Roslyn Perales MD Discharge: Date of : 60 Report #: [id number] THIS REPORT FOR: cc: Randy Hernandez,Roslyn Rodriguez MD ~ CC: Roslyn Hernandez DATE OF SERVICE: 04/26/2020 CHIEF COMPLAINT: The medication is helpful, but I am noticing some breakthrough. HISTORY: The patient is a 59-year-old female who has been followed in the pain clinic because of chronic pain involving her neck as well as pain in the left arm. She returns today for evaluation. She has been noticing some breakthrough in the late afternoon with her medication. She has also been waking up in the middle of the night because of the pain. Methadone seems to be working reasonably well, but she feels that the level might be a bit low. She has noted neuropathy in her left hand, has been increasing with tingling. Notes some pain and discomfort at the base of her skull on the right side. Notes it is throbbing, cramping, stabbing discomfort. Overall, she rates her pain as a 3/10 today. Pain is exacerbated with activity, such as bending. Also, notes that if she holds her head in a certain position, pain can be more problematic. Pain improves when she rests, uses medication and uses ice. As you may recall, she has had fusion from C3 through C7 of the cervical vertebrae. She was wondering if we could increase her medications slightly to help control the pain during the time of breakthrough. ALLERGIES: ASPIRIN, PENICILLIN. CURRENT MEDICATIONS: Systane 0.3/0.4% eyedrops, Flonase 0.05% nasal spray b.i.d., Zyrtec 10 mg, Zanaflex 4 mg t.i.d., vitamin D 400 units, multivitamins, vitamin B complex, Tylenol Extra Strength 500 mg, Lipitor 20 mg, sulindac 150 mg, Wellbutrin 150 mg, verapamil 120 mg, Zofran 4 mg, methadone 10 mg daily. PAIN CLINIC ASSESSMENT AND PQRS: 1. The patient has a history of osteoarthritis involving her neck and cervical changes in her spine with osteoarthritis. The patient is not being treated for rheumatoid arthritis. 2. Height 5 feet 7 inches, weight 127 pounds, BMI is 19. 3. Pain intensity 3-4/10. Medications are working well between 7:30 and 8:00. At about 2:00, she notes that the pain starts to become more problematic. 4. Vital signs: Blood pressure 136/74, pulse 61, respiratory rate 14, room air saturation 100%. [place] [address] PAIN MANAGEMENT CONSULTATION Name: NONI PATEL Room #: REG [facility]#: [id number] Admission: 04/26/20 Attend Phys: Roslyn Perales MD Discharge: Date of : 60 Report #: [id number] 5. Risk assessment tool, low for opioid use. 6. Fall risk. The patient has not fallen. 7. Blood thinner. The patient is not on a blood thinning medication. 8. Hypertension. The patient is being treated for hypertension. 9. Opioids greater than 6 weeks. The patient receives medication from the pain clinic. 10. Functional assessment tool 57/70. 11. Recreational drug use: The patient denies. 12. Tobacco: The patient is a former smoker. 13. Alcohol: The patient occasionally drinks alcoholic beverages. PHYSICAL EXAMINATION: GENERAL: The patient is a well-developed, well-nourished white female. Appears her stated age. She is alert and oriented x 3. Her affect is appropriate. Speech is fluent. HEENT: Normocephalic, atraumatic. Extraocular eye muscles intact. Sclerae nonicteric. Mucous membranes are moist. The patient is wearing a facial covering. NECK: With decreased range of motion because of fusion of C6 through C3. Left and right lateral motion limited, increased discomfort with flexion and extension. Complains of dvik-kg-naxz movement in her neck with grinding. She has a well-healed scar in the anterior portion of her neck without JVD or adenopathy. HEART: Regular rate. ABDOMEN: Nontender. CHEST: Clear. EXTREMITIES: Upper extremity muscle strength judged to be 5-/5 for the major muscle groups in the upper extremity. Lower extremity muscle strength 5-/5 for the major muscle groups in the lower extremity. The patient without significant scoliosis, kyphosis or lordosis. The patient has a well-healed scar in the lower portion of her back. IMPRESSION: 1. Cervical radiculopathy with history of left arm pain. 2. Hyperlipidemia. 3. Nicotine dependence. 4. Hypertension. 5. Arthritis. 6. History of colonic polyps. 7. Lumbar stenosis with neurogenic claudication. 8. Pancreatitis in the past. 9. Uterine fibroids. 10. History of ovarian cyst. RECOMMENDATIONS: We discussed treatment options with the patient. At this juncture, we will continue with her medications. The patient will try [facility] [address] [place] [address] PAIN MANAGEMENT CONSULTATION Name: NONI PATEL Room #: REG [facility]#: [id number] Admission: 04/26/20 Attend Phys: Roslyn Perales MD Discharge: Date of : 60 Report #: [id number] amitriptyline 10 mg at bedtime. Hopefully, this will be helpful with the pain as well as decreasing her wakefulness at night. We will have the patient try methadone 10 mg tablets, one 10 mg in the morning, one half tablet at night. The patient will receive 45 tablets per month. She will also continue with Robaxin 750 mg 1 p.o. t.i.d. She will call us if she has any concerns. We would like to thank you for letting us participate in her care. We hope she continues to improve. By: [id number] Roslyn Perales MD /nt
[2020-04-26 10:54] VITALS: BP 136/74
--- NOTE | 2020-04-26 11:08 | NUR ---
Pain Clinic Assessment: 1. History of Osteoarthritis: SPINE B/L HANDS B/L SHOULDERS LEFT KNEE History of Rheumatoid Arthritis: NONE 2. Height: 5 ft. 8 in. 172.7 cm. Weight: 127.2 lb. oz. 57.697 kg. Patient's BMI: 19.3 3. Vital Signs: BP: 136/74 Pulse: 61 Resp: 14 Temp: 02 Sat: 100 ECG Mon: 4. Pain Intensity: 3 5. Fall Risk: Dizziness: N Needs help standing or walking: N Fallen in the last 3 months: N Fall risk comments: 6. Patient on Blood Thinner: None 7. History of Hypertension: Y 8. Opioid Therapy greater than 6 weeks: N Opiate Contract Signed: 02/04/20 9. Risk Assessment Tool Provided: LOW RISK 08/16 10. Functional Assessment Tool: 11. Recreational Drug Use: Never Drug Type: Tobacco Use: Former Smoker Tobacco Type: Amount or Packs/day: How Many Years: Alcohol Use: Yes Frequency: Quant:
== END ==
LOC: PAIN 06:49
PROVIDERS: ATTEND Anesthesiology Pain Medicine
DX: M54.2 Cervicalgia (principal); E78.5 Hyperlipidemia, unspecified; M19.90 Unspecified osteoarthritis, unspecified site; M48.061 Spinal stenosis, lumbar region without neurogenic claudication; D25.9 Leiomyoma of uterus, unspecified; I10 Essential (primary) hypertension; F17.200 Nicotine dependence, unspecified, uncomplicated; Z86.010 Personal history of colon polyps; Z87.19 Personal history of other diseases of the digestive system; Z87.42 Personal history of other diseases of the female genital tract

== ENCOUNTER → 2020-05-24 | Outpatient (CLI) | payer OTHER ==
[~2020-05-24] VITALS: Ht 172.7 cm; Wt 58.4 kg
[~2020-05-24] MED LIST changes: +AMITRIPTYLINE H10 M1 PO
[2020-05-24 11:11] VITALS: BP 130/84
--- NOTE | 2020-05-24 11:26 | NUR ---
Pain Clinic Assessment: 1. History of Osteoarthritis: SPINE B/L HANDS B/L SHOULDERS LEFT KNEE History of Rheumatoid Arthritis: NONE 2. Height: 5 ft. 8 in. 172.7 cm. Weight: 128.8 lb. oz. 58.423 kg. Patient's BMI: 19.6 3. Vital Signs: BP: 130/84 Pulse: 64 Resp: 14 Temp: 02 Sat: 99 ECG Mon: 4. Pain Intensity: 2 5. Fall Risk: Dizziness: Y Needs help standing or walking: N Fallen in the last 3 months: N Fall risk comments: 6. Patient on Blood Thinner: None 7. History of Hypertension: Y 8. Opioid Therapy greater than 6 weeks: N Opiate Contract Signed: 02/04/20 9. Risk Assessment Tool Provided: LOW RISK 3 10. Functional Assessment Tool: / 11. Recreational Drug Use: Never Drug Type: Tobacco Use: Former Smoker Tobacco Type: Amount or Packs/day: How Many Years: Alcohol Use: Yes Frequency: Quant:
--- NOTE | 2020-05-25 07:48 | HPC ---
[facility] [address] [place] [address] PAIN MANAGEMENT CONSULTATION Name: NONI PATEL Room #: REG [facility].#: [id number] Admission: 05/24/20 Attend Phys: Mary Beaver Discharge: Date of : 60 Report #: [id number] THIS REPORT FOR: cc: Randy Hernandez Steven F. DO Hocker,Mary GRANT ~ DATE OF SERVICE: 05/24/2020 CHIEF COMPLAINT: Chronic neck pain with radiculopathy. HISTORY OF PRESENT ILLNESS: This is a pleasant 59-year-old female who returns to the pain clinic today for refill of her medications. She is reporting that overall she feels like the methadone and amitriptyline are very beneficial in controlling her pain, rating at a 2/10 today. Her pain is occasionally in her lower back as well and that does radiate into her left leg. It is a throbbing, cramping sensation that is worse with activity or significant bending. Overall, she feels the medication has been beneficial with very minimal side effects of constipation and no daytime somnolence. She does use ice occasionally as well. The patient may use Robaxin on a p.r.n. basis, though she has been having difficulty having the insurance company pay for this medication despite it being very beneficial. She does use it very sporadically. ALLERGIES: ASPIRIN, PENICILLIN. CURRENT LIST OF MEDICATIONS: Methocarbamol p.r.n.; methadone 10 mg in the morning, 5 mg at night; amitriptyline 10 mg at bedtime, Celebrex, glucosamine chondroitin, Systane drops, Flonase, Zyrtec, multivitamin, Lipitor, Wellbutrin, verapamil. PQRS: 1. She does have a history of osteoarthritis involving her cervical spine. Denies rheumatoid arthritis. 2. Height is 5 feet 8 inches, weight is 128, BMI is 19. 3. Vital signs; blood pressure 130/84, pulse is 64, respirations 14, oxygen sat is 99%. 4. Pain score is 2/10. 5. Fall risk, complains of slight dizziness, does not need assistance with walking or has not fallen in the last 3 months. 6. The patient is not on any blood thinners, but does take medicine for hypertension. 7. Her opioid therapy is greater than 6 weeks; therefore, there is an opioid signed contract on the chart. Risk assessment is low. Functional assessment is 57/70. 8. Recreational drug use, she denies. She is a former smoker [place] [address] PAIN MANAGEMENT CONSULTATION Name: NONI PATEL [facility] [id number] Admission: 05/24/20 Attend Phys: Mary Beaver Discharge: Date of : 60 Report #: [id number] According to the prescription monitoring system, the patient is filling appropriately. She is seen on a monthly basis in our clinic by Dr. Perales. Her morphine milliequivalent is 45 MME. There is a contract on the chart and we will check a urine drug screen on her at her next visit. PHYSICAL EXAMINATION: GENERAL: This is alert and orientated, well-developed, well-nourished 59-year-old female who appears her stated age. Her affect is appropriate and her speech is fluent, placing her current pain score at 2/10 today. HEENT: Normocephalic, atraumatic. Extraocular eye muscles are intact. Mucous membranes are moist. She is wearing a mask. NECK: She has limited range of motion due to fusion from C3 through C6. She has a well-healed scar in her anterior portion of her neck. EXTREMITIES: Upper extremity strength is symmetrical at 5/5. She has discomfort in her lower portion of her back that radiates into her lower extremities. She is without significant kyphosis, scoliosis or lordosis. IMPRESSION: 1. Cervical radiculopathy with previous fusion. 2. Hypertension. 3. Lumbar stenosis with neurogenic claudication. 4. Pancreatitis history. 5. Opioid medication management, utilizing scheduled medications. We reviewed the fact that opiate medications are being used to provide analgesia adequate to support activities of daily living, not attempting to achieve a specific pain score on the 0-10 Visual Analog Scale. The current opiate medications are providing sufficient analgesia to allow the patient to participate in activities of daily living. The patient is not exhibiting any aberrant behavior suggestive of drug diversion. The patient is not having any adverse reactions to medications. The patient is not suffering from daytime somnolence or mental acuity changes. The patient is managing opiate-induced constipation with appropriate qyvu-zdg-djjjpvn agents and dietary considerations. The patient was counseled on concern for caution with operating a motor vehicle while using opiate medications. PLAN: 1. We discussed treatment options with the patient today. At this juncture, we will continue her on her methadone 10 mg in the morning and 5 mg at night. She finds this beneficial in helping reduce her pain, taking this on schedule. Dr. Perales will send this medication for 1 month electronically. 2. I will continue her on her amitriptyline 10 mg at bedtime. She believes this is beneficial in helping her sleep at night as well as some of her radicular symptoms, #30 sent with 5 additional refills. 3. The patient continues to take her Robaxin on a very p.r.n. basis. No scripts needed due to insurance not willing to pay for this medication. She has [facility] [address] [place] [address] PAIN MANAGEMENT CONSULTATION Name: NONI PATEL [id number] Admission: 05/24/20 Attend Phys: Mary Beaver Discharge: Date of : 60 Report #: [id number] taken Flexeril and Soma as well as tizanidine in the past, which caused significant somnolence. She believes Robaxin does not have that side effect for her and is very beneficial in decreasing some of her muscle spasms in her neck and lower back. 4. The patient will follow up in 1 month. She is seen today in collaboration with Dr. Perales. <ELECTRONICALLY SIGNED> By: Mary Beaver 05/25/20 [id number] [id number] Mary Beaver /nt
== END ==
LOC: PAIN 06:49
PROVIDERS: ATTEND Clinical Nurse Specialist Adult Health
DX: M54.12 Radiculopathy, cervical region (principal); M48.061 Spinal stenosis, lumbar region without neurogenic claudication; I10 Essential (primary) hypertension; Z79.891 Long term (current) use of opiate analgesic

== ENCOUNTER → 2020-06-21 | Outpatient (CLI) | payer OTHER ==
[~2020-06-21] VITALS: Ht 172.7 cm; Wt 58.0 kg
[2020-06-21 10:45] VITALS: BP 141/73
--- NOTE | 2020-06-21 10:56 | NUR ---
Pain Clinic Assessment: 1. History of Osteoarthritis: SPINE B/L HANDS B/L SHOULDERS LEFT KNEE History of Rheumatoid Arthritis: NONE 2. Height: 5 ft. 8 in. 172.7 cm. Weight: 127.8 lb. oz. 57.970 kg. Patient's BMI: 19.4 3. Vital Signs: BP: 141/73 Pulse: 60 Resp: 14 Temp: 02 Sat: 100 ECG Mon: 4. Pain Intensity: 4 5. Fall Risk: Dizziness: N Needs help standing or walking: N Fallen in the last 3 months: N Fall risk comments: 6. Patient on Blood Thinner: None 7. History of Hypertension: Y 8. Opioid Therapy greater than 6 weeks: N Opiate Contract Signed: 02/04/20 9. Risk Assessment Tool Provided: LOW RISK 3 10. Functional Assessment Tool: 57/70 11. Recreational Drug Use: Current within past 3 mos Drug Type: MARIJUANA 2 DAYS AGO Tobacco Use: Former Smoker Tobacco Type: Amount or Packs/day: How Many Years: Alcohol Use: Yes Frequency: Special Occasions Quant:
--- NOTE | 2020-06-22 08:01 | HPC ---
[facility] [address] [place] [address] PAIN MANAGEMENT CONSULTATION Name: NONI PATEL [facility] [id number] Admission: 06/21/20 Attend Phys: Mary Beaver Discharge: Date of : 60 Report #: [id number] THIS REPORT FOR: cc: Randy Hernandez Steven F. DO Hocker,Mary GRANT ~ DATE OF SERVICE: 06/21/2020 CHIEF COMPLAINT: Chronic neck pain with radiculopathy and low back pain. HISTORY OF PRESENT ILLNESS: This is a 59-year-old female who returns to the pain clinic today for refill of her methadone. She does report that most days, her methadone therapy along with her adjunct medication is very beneficial in controlling her pain, today rating it a 4/10. Though in the past month, she has had days that she has had significantly increased pain, especially in her low back when she has been bending. Because of this, she has tried her son's marijuana and has inhaled it several times. She is unsure that it was beneficial in helping reduce her pain. She reports going to bed right after using the marijuana. The patient also reports that the amitriptyline she takes on an as needed basis and continues to have "hungover sensations in the morning." The patient uses her Robaxin as needed as well for ongoing muscle spasms in her neck. Today, she is requesting refills of her medications. ALLERGIES: ASPIRIN AND PENICILLIN. CURRENT LIST OF MEDICATIONS: Amitriptyline 10 mg, methadone 10 mg in the morning and 5 mg at night, Robaxin p.r.n., Celebrex, Flonase, Zyrtec, multivitamin, Tylenol, atorvastatin, verapamil, Zofran. PQRS: 1. She has a history of osteoarthritic changes in her neck and lower back as well as hands, knees and shoulders. Denies any rheumatoid arthritis. 2. Height is 5 feet 8 inches, weight is 127, BMI is 19. 3. Vital signs 141/73, pulse is 60, respirations 14, oxygen sat is 100%. 4. Pain score is 4/10. 5. Denies dizziness, does not need assistance with ambulation and has not fallen in the last 3 months. 6. The patient is not on any blood thinners, but does take medicine for hypertension. 7. Opioid therapy is greater than 6 weeks. We will have her sign an opioid signed contract today. 8. Risk assessment is low. Functional assessment is 57/70. 9. Recreational drug use in the past 3 months, she is using marijuana. She is a former smoker and occasionally drinks alcohol. According to the prescription monitoring system, the patient is filling [address] [address] PAIN MANAGEMENT CONSULTATION Name: NONI PATEL Room #: REG [id number] Admission: 06/21/20 Attend Phys: Mary Beaver Discharge: Date of : 60 Report #: [id number] appropriately in a timely fashion. She is seen every month here in our clinic and her morphine milliequivalent is 45 MME. We will collect a random drug screen on this patient next week. Our plan was to collect today, but since she has used medical marijuana, which we have had a discussion on, we will check it in the future. PHYSICAL EXAMINATION: GENERAL: This is alert and orientated, well-developed, slightly thin 59-year-old female who appears her stated age, placing her current pain score at 4/10 today. Her affect is appropriate and speech is fluent. HEENT: Normocephalic, atraumatic. Extraocular eye muscles are intact. Sclerae are nonintrinsic. She is wearing a face mask. NECK: Cervical provocation testing is met with increasing resistance in pain. She has a fusion from C3-C6 with a well-healed approximated scar in her anterior and posterior neck. She is without JVD or adenopathy. EXTREMITIES: Upper extremity strength is symmetrical at 5/5 as well as in her lower extremity with good muscle tone and strength. She is without significant scoliosis, kyphosis or lordosis. She has tenderness in the lumbosacral region that does radiate into her left leg. We reviewed the fact that opiate medications are being used to provide analgesia adequate to support activities of daily living, not attempting to achieve a specific pain score on the 0-10 Visual Analog Scale. The current opiate medications are providing sufficient analgesia to allow the patient to participate in activities of daily living. The patient is not exhibiting any aberrant behavior suggestive of drug diversion. The patient is not having any adverse reactions to medications. The patient is not suffering from daytime somnolence or mental acuity changes. The patient is managing opiate-induced constipation with appropriate gcei-cpc-czjdtwd agents and dietary considerations. The patient was counseled on concern for caution with operating a motor vehicle while using opiate medications. A physical exam was performed and the patient's functional status was evaluated. All patients with back pain were advised against the bed rest greater than 4 days and were advised to return to normal activities. Pain score assessment was noted and the treatment plan was reviewed with the patient. All current medications, both prescribed and OTC were reviewed and reconciled on the electronic medical record. Tobacco screening was accomplished and smoking cessation was advised when indicated. BMI was noted and diet/exercise modification was recommended for all patients following outside normal parameters. I reviewed with the patient today their responsibilities to safeguard prescription medications, reviewed their responsibility to utilize medications only as prescribed by the physician. They are to seek and receive pain medications only from 1 physician group ( [facility]). They are to use [address] [address] PAIN MANAGEMENT CONSULTATION Name: NONI PATEL Room #: REG [facility] José#: [id number] Admission: 06/21/20 Attend Phys: Mary Beaver Discharge: Date of : 60 Report #: [id number] pharmacy and keep the clinic informed if they change pharmacies. Their responsibilities include making followup visits in a timely fashion and to avoid abrupt discontinuation of medication usage. Their responsibilities further include bringing their medications (bottles from the pharmacy with residual pills) to the visit for possible confirmation of pill counts and the patient understands it is their responsibility to submit to random drug screens to ensure both that the medications prescribed are present, and that no other controlled substances are present. All prescriptions provided today were generated electronically. ASSESSMENT: 1. Cervical radiculopathy, status post fusion. 2. Hypertension. 3. Lumbar spinal stenosis with neurogenic claudication. 4. History of pancreatitis. 5. Opioid medications under written agreement. 6. Arthritis. RECOMMENDATIONS: 1. We discussed treatment options with the patient today. We spent a significant amount of time, greater than 15 minutes discussing medical marijuana. The patient has recently used her son's marijuana that was not for medicinal purposes and to help control some of her pain. We discussed options for her treatment including medical marijuana where she can obtain a green card and that we would decrease her opioid medications. Explained to her that the FDA and [place] do not see that is a legal medication and we are unable to prescribe. She may go to a green doctor and obtain a card and buy her medical marijuana at a dispensary. At this point, the patient finds that very expensive and would rather continue on traditional opioid medications. We did discuss that she may use CBD oil that does not contain any THC. We will obtain a urine drug screen on the patient in another visit reminding her that marijuana varies how long it does stay in someone's system. 2. We will continue her on methadone 10 mg tablets 1 in the morning and 0.5 at bedtime. 3. We discussed the amitriptyline. Encouraging the patient to take this on a nightly basis to decrease the side effects of hungover sensation in the morning and see if it enables her to sleep better and help with her neuropathic pain. No scripts needed. The patient will start taking this nightly. 4. The patient will follow up in 1 month. She did sign an opioid agreement contract today and is placed on her chart, 5. The patient is seen today in collaboration with Dr. Sacha Perales. <ELECTRONICALLY SIGNED> By: Mary Beaver 06/22/20 0801 [id number] Mary Beaver /nt
== END ==
LOC: PAIN 06:47
PROVIDERS: ATTEND Clinical Nurse Specialist Adult Health
DX: M54.12 Radiculopathy, cervical region (principal); M54.16 Radiculopathy, lumbar region; I10 Essential (primary) hypertension; M48.061 Spinal stenosis, lumbar region without neurogenic claudication; F11.20 Opioid dependence, uncomplicated; M19.90 Unspecified osteoarthritis, unspecified site; Z87.19 Personal history of other diseases of the digestive system; Z88.8 Allergy status to other drugs, medicaments and biological substances; Z79.899 Other long term (current) drug therapy

== ENCOUNTER → 2020-07-21 | Outpatient (CLI) | payer OTHER ==
[~2020-07-21] VITALS: Ht 172.7 cm; Wt 57.8 kg
[~2020-07-21] MED LIST changes: +APPLE CIDER VI300 MG PO; +OMEPRAZOLE 20 M20 M1 PO; +[UNRECOGNIZED DRUG - REMARK] PO
[2020-07-21 10:35] VITALS: BP 144/79
--- NOTE | 2020-07-21 10:51 | NUR ---
Pain Clinic Assessment: 1. History of Osteoarthritis: SPINE B/L HANDS B/L SHOULDERS LEFT KNEE History of Rheumatoid Arthritis: NONE 2. Height: 5 ft. 8 in. 172.7 cm. Weight: 127.4 lb. oz. 57.788 kg. Patient's BMI: 19.4 3. Vital Signs: BP: 144/79 Pulse: 72 Resp: 14 Temp: 02 Sat: ECG Mon: 4. Pain Intensity: 4 5. Fall Risk: Dizziness: Y Needs help standing or walking: N Fallen in the last 3 months: N Fall risk comments: 6. Patient on Blood Thinner: None 7. History of Hypertension: Y 8. Opioid Therapy greater than 6 weeks: N Opiate Contract Signed: 02/04/20 9. Risk Assessment Tool Provided: LOW RISK 3 10. Functional Assessment Tool: 57/ 11. Recreational Drug Use: Current within past 3 mos Drug Type: MARIJUANA Tobacco Use: Vaping Tobacco Type: E-Cigarettes Amount or Packs/day: How Many Years: 2 Alcohol Use: Yes Frequency: Monthly Quant: 1-2
== END ==
LOC: PAIN 06:59
PROVIDERS: ATTEND Anesthesiology Pain Medicine
DX: M54.12 Radiculopathy, cervical region (principal); E78.2 Mixed hyperlipidemia; I10 Essential (primary) hypertension; M19.90 Unspecified osteoarthritis, unspecified site; M48.061 Spinal stenosis, lumbar region without neurogenic claudication; D25.9 Leiomyoma of uterus, unspecified; F17.200 Nicotine dependence, unspecified, uncomplicated; Z87.42 Personal history of other diseases of the female genital tract; Z87.19 Personal history of other diseases of the digestive system; Z86.010 Personal history of colon polyps; Z88.8 Allergy status to other drugs, medicaments and biological substances; Z79.899 Other long term (current) drug therapy

== ENCOUNTER → 2020-08-18 | Outpatient (CLI) | payer OTHER ==
[~2020-08-18] VITALS: Ht 172.7 cm; Wt 59.8 kg
[2020-08-18 10:30] VITALS: BP 127/90
--- NOTE | 2020-08-18 10:50 | NUR ---
Pain Clinic Assessment: 1. History of Osteoarthritis: SPINE B/L HANDS B/L SHOULDERS LEFT KNEE History of Rheumatoid Arthritis: NONE 2. Height: 5 ft. 8 in. 172.7 cm. Weight: 131.8 lb. oz. 59.784 kg. Patient's BMI: 20.0 3. Vital Signs: BP: 127/90 Pulse: 70 Resp: 14 Temp: 02 Sat: 96 ECG Mon: 4. Pain Intensity: 3 5. Fall Risk: Dizziness: Y Needs help standing or walking: N Fallen in the last 3 months: N Fall risk comments: 6. Patient on Blood Thinner: None 7. History of Hypertension: Y 8. Opioid Therapy greater than 6 weeks: N Opiate Contract Signed: 02/04/20 9. Risk Assessment Tool Provided: LOW RISK 3 10. Functional Assessment Tool: 57/ 11. Recreational Drug Use: Current within past 3 mos Drug Type: Tobacco Use: Vaping Tobacco Type: Amount or Packs/day: How Many Years: Alcohol Use: Yes Frequency: Weekly Quant: COUPLES TIMES/WEEK
== END ==
LOC: PAIN 06:46
PROVIDERS: ATTEND Anesthesiology Pain Medicine
DX: M54.12 Radiculopathy, cervical region (principal); E78.5 Hyperlipidemia, unspecified; F17.200 Nicotine dependence, unspecified, uncomplicated; I10 Essential (primary) hypertension; M19.90 Unspecified osteoarthritis, unspecified site; M48.062 Spinal stenosis, lumbar region with neurogenic claudication; D25.9 Leiomyoma of uterus, unspecified; Z85.43 Personal history of malignant neoplasm of ovary; Z88.8 Allergy status to other drugs, medicaments and biological substances; Z79.899 Other long term (current) drug therapy

== ENCOUNTER → 2020-09-15 | Outpatient (CLI) | payer OTHER ==
[~2020-09-15] VITALS: Ht 172.7 cm; Wt 61.1 kg
[~2020-09-15] MED LIST changes: +FAMOTIDINE 10 M10 MG PO
[2020-09-15 10:44] VITALS: BP 150/90
--- NOTE | 2020-09-15 11:07 | NUR ---
Pain Clinic Assessment: 1. History of Osteoarthritis: SPINE B/L HANDS B/L SHOULDERS LEFT KNEE History of Rheumatoid Arthritis: NONE 2. Height: 5 ft. 8 in. 172.7 cm. Weight: 134.6 lb. oz. 61.054 kg. Patient's BMI: 20.5 3. Vital Signs: BP: 150/90 Pulse: 68 Resp: 14 Temp: 02 Sat: 100 ECG Mon: 4. Pain Intensity: 4 5. Fall Risk: Dizziness: Y Needs help standing or walking: N Fallen in the last 3 months: N Fall risk comments: 6. Patient on Blood Thinner: None 7. History of Hypertension: Y 8. Opioid Therapy greater than 6 weeks: N Opiate Contract Signed: 02/04/20 9. Risk Assessment Tool Provided: LOW RISK 3 10. Functional Assessment Tool: 57/70 11. Recreational Drug Use: Past greater than 3 mos Drug Type: Tobacco Use: Vaping Tobacco Type: E-Cigarettes Amount or Packs/day: How Many Years: Alcohol Use: Yes Frequency: Monthly Quant: 2-3
== END ==
LOC: PAIN 06:48
PROVIDERS: ATTEND Anesthesiology Pain Medicine
DX: M54.12 Radiculopathy, cervical region (principal); E78.5 Hyperlipidemia, unspecified; I10 Essential (primary) hypertension; M19.90 Unspecified osteoarthritis, unspecified site; M48.062 Spinal stenosis, lumbar region with neurogenic claudication; D25.9 Leiomyoma of uterus, unspecified; Z87.42 Personal history of other diseases of the female genital tract; Z72.0 Tobacco use; Z88.8 Allergy status to other drugs, medicaments and biological substances; Z79.899 Other long term (current) drug therapy

== ENCOUNTER 2020-09-25 13:14 | Emergency (ER) | payer OTHER ==
[~2020-09-25] VITALS: Ht 172.7 cm; Wt 59.0 kg
[2020-09-25 13:38] VITALS: BP 164/56
[2020-09-25] MEDS ORDERED: CLEOCIN HCL300 MG PO (13:49)
== END 2020-09-25 14:18 | disposition home or self-care (01) ==
LOC: ER 13:14
DX: S61.212A Laceration without foreign body of right middle finger without damage to nail, initial encounter (principal); S61.252A Open bite of right middle finger without damage to nail, initial encounter; Z79.899 Other long term (current) drug therapy; Z88.0 Allergy status to penicillin; Z88.6 Allergy status to analgesic agent; W54.0XXA Bitten by dog, initial encounter; Y93.89 Activity, other specified; Y92.89 Other specified places as the place of occurrence of the external cause; Y99.8 Other external cause status

== ENCOUNTER → 2020-10-18 | Outpatient (CLI) | payer OTHER ==
[~2020-10-18] VITALS: Ht 172.7 cm; Wt 61.3 kg
[~2020-10-18] MED LIST changes: +CLEOCIN HCL300 MG PO; +METHOCARBAMOL750 MG PO
--- NOTE | ~2020-10-18 | HPC ---
[facility] [place] [address] PAIN MANAGEMENT CONSULTATION Name: NONI PATEL [facility] [id number] Admission: 10/18/20 Attend Phys: Roslyn Perales MD Discharge: Date of : 60 Report #: [id number] THIS REPORT FOR: cc: Randy Hernandez Steven F. DO Brown, N. Wayne MD ~ DOC #: [id number] Winnie Perales MD DATE OF SERVICE: 10/18/2020 ADDENDUM Addendum is for dictation [id number] for a transforaminal epidural steroid injection. PLAN: We discussed the treatment option with the patient. Risks and benefits of an epidural steroid injection were discussed. They include, but are not limited to infection, worsening pain, no improvement in pain, nerve damage, bleeding and infection. The patient is aware and elects to proceed. PROCEDURE NOTE: The patient was taken to the procedure area. She was then assisted in getting on the examination table. Her back was sterilely prepped with a Betadine solution. At the left L5/L4 transforaminal area a total of 3 mL of 0.25% bupivacaine was injected. A 20-gauge spinal needle was then advanced using the transforaminal approach under fluoroscopy. After appropriate placement was noted aspiration was negative. A total of 80 mg Depo-Medrol, 40 mg triamcinolone and 2 mL of 0.25% bupivacaine was injected. The patient's pain decreased from 4 to 0. There were no weaknesses in her leg. She was then taken to the recovery area where she remained for an appropriate amount of time. She will call us if she has any concerns. We would like to thank you for letting us participate in her care. Winnie HERNANDEZ/RONY By: 0815 [id number] Roslyn Perales MD /nt
[2020-10-18 10:58] VITALS: BP 132/72
--- NOTE | 2020-10-18 11:15 | NUR ---
Pain Clinic Assessment: 1. History of Osteoarthritis: SPINE B/L HANDS B/L SHOULDERS LEFT KNEE History of Rheumatoid Arthritis: NONE 2. Height: 5 ft. 8 in. 172.7 cm. Weight: 135.2 lb. oz. 61.326 kg. Patient's BMI: 20.6 3. Vital Signs: BP: 132/72 Pulse: 72 Resp: 14 Temp: 02 Sat: 97 ECG Mon: 4. Pain Intensity: 4 5. Fall Risk: Dizziness: N Needs help standing or walking: N Fallen in the last 3 months: N Fall risk comments: 6. Patient on Blood Thinner: None 7. History of Hypertension: Y 8. Opioid Therapy greater than 6 weeks: N Opiate Contract Signed: 02/04/20 9. Risk Assessment Tool Provided: LOW RISK 3 10. Functional Assessment Tool: 57/ 11. Recreational Drug Use: Past greater than 3 mos Drug Type: Tobacco Use: Vaping Tobacco Type: Amount or Packs/day: How Many Years: Alcohol Use: Yes Frequency: Quant:
== END | disposition home or self-care (01) ==
LOC: PAIN 09:00
PROVIDERS: ATTEND Anesthesiology Pain Medicine
DX: M54.16 Radiculopathy, lumbar region (principal); G89.29 Other chronic pain; M19.90 Unspecified osteoarthritis, unspecified site; I10 Essential (primary) hypertension; Z98.890 Other specified postprocedural states; Z79.899 Other long term (current) drug therapy; Z88.0 Allergy status to penicillin

== ENCOUNTER → 2020-11-15 | Outpatient (CLI) | payer OTHER ==
[~2020-11-15] VITALS: Ht 172.7 cm; Wt 60.8 kg
[2020-11-15 10:39] VITALS: BP 162/84
--- NOTE | 2020-11-15 11:04 | NUR ---
Pain Clinic Assessment: 1. History of Osteoarthritis: SPINE B/L HANDS B/L SHOULDERS LEFT KNEE History of Rheumatoid Arthritis: NONE 2. Height: 5 ft. 8 in. 172.7 cm. Weight: 134.0 lb. oz. 60.782 kg. Patient's BMI: 20.4 3. Vital Signs: BP: 162/84 Pulse: 79 Resp: 14 Temp: 02 Sat: 100 ECG Mon: 4. Pain Intensity: 7 W/ACTIVITY 5. Fall Risk: Dizziness: N Needs help standing or walking: N Fallen in the last 3 months: N Fall risk comments: 6. Patient on Blood Thinner: None 7. History of Hypertension: Y 8. Opioid Therapy greater than 6 weeks: N Opiate Contract Signed: 02/04/20 9. Risk Assessment Tool Provided: LOW RISK 3 10. Functional Assessment Tool: 57/70 11. Recreational Drug Use: Past greater than 3 mos Drug Type: Tobacco Use: Vaping Tobacco Type: Amount or Packs/day: How Many Years: Alcohol Use: Yes Frequency: Quant:
== END ==
LOC: PAIN 07:05
PROVIDERS: ATTEND Anesthesiology Pain Medicine
DX: M54.12 Radiculopathy, cervical region (principal); E78.5 Hyperlipidemia, unspecified; I10 Essential (primary) hypertension; M19.90 Unspecified osteoarthritis, unspecified site; M48.062 Spinal stenosis, lumbar region with neurogenic claudication; K85.90 Acute pancreatitis without necrosis or infection, unspecified; Z86.010 Personal history of colon polyps

== ENCOUNTER → 2020-12-13 | Outpatient (CLI) | payer OTHER ==
[~2020-12-13] VITALS: Ht 172.7 cm; Wt 58.8 kg
[2020-12-13 11:01] VITALS: BP 136/77
--- NOTE | 2020-12-13 11:23 | NUR ---
Pain Clinic Assessment: 1. History of Osteoarthritis: SPINE B/L HANDS B/L SHOULDERS LEFT KNEE History of Rheumatoid Arthritis: NONE 2. Height: 5 ft. 8 in. 172.7 cm. Weight: 129.6 lb. oz. 58.786 kg. Patient's BMI: 19.7 3. Vital Signs: BP: 136/77 Pulse: 72 Resp: 14 Temp: 02 Sat: 100 ECG Mon: 4. Pain Intensity: 0 5. Fall Risk: Dizziness: N Needs help standing or walking: N Fallen in the last 3 months: N Fall risk comments: 6. Patient on Blood Thinner: None 7. History of Hypertension: Y 8. Opioid Therapy greater than 6 weeks: N Opiate Contract Signed: 02/04/20 9. Risk Assessment Tool Provided: LOW RISK 3 10. Functional Assessment Tool: 57/ 11. Recreational Drug Use: Past greater than 3 mos Drug Type: Tobacco Use: Vaping Tobacco Type: Amount or Packs/day: How Many Years: Alcohol Use: Yes Frequency: Weekly Quant: 2 beers
== END ==
LOC: PAIN 07:05
PROVIDERS: ATTEND Anesthesiology Pain Medicine
DX: M54.12 Radiculopathy, cervical region (principal); E78.5 Hyperlipidemia, unspecified; I10 Essential (primary) hypertension; M19.90 Unspecified osteoarthritis, unspecified site; M48.062 Spinal stenosis, lumbar region with neurogenic claudication; K85.90 Acute pancreatitis without necrosis or infection, unspecified; D25.9 Leiomyoma of uterus, unspecified; F17.200 Nicotine dependence, unspecified, uncomplicated; Z86.010 Personal history of colon polyps; Z79.899 Other long term (current) drug therapy; Z79.891 Long term (current) use of opiate analgesic; Z88.6 Allergy status to analgesic agent; Z88.0 Allergy status to penicillin

== ENCOUNTER → 2021-01-12 | Outpatient (CLI) | payer OTHER ==
[~2021-01-12] VITALS: Ht 172.7 cm; Wt 59.8 kg
[2021-01-12 10:43] VITALS: BP 141/80
--- NOTE | 2021-01-12 10:48 | NUR ---
Pain Clinic Assessment: 1. History of Osteoarthritis: SPINE B/L HANDS B/L SHOULDERS LEFT KNEE History of Rheumatoid Arthritis: NONE 2. Height: 5 ft. 8 in. 172.7 cm. Weight: 131.8 lb. oz. 59.784 kg. Patient's BMI: 20.0 3. Vital Signs: BP: 141/80 Pulse: 69 Resp: 16 Temp: 02 Sat: 98 ECG Mon: 4. Pain Intensity: 0 5. Fall Risk: Dizziness: N Needs help standing or walking: N Fallen in the last 3 months: N Fall risk comments: 6. Patient on Blood Thinner: None 7. History of Hypertension: Y 8. Opioid Therapy greater than 6 weeks: N Opiate Contract Signed: 02/04/20 9. Risk Assessment Tool Provided: LOW RISK 3 10. Functional Assessment Tool: 57/70 11. Recreational Drug Use: Past greater than 3 mos Drug Type: Tobacco Use: Vaping Tobacco Type: E-Cigarettes Amount or Packs/day: How Many Years: Alcohol Use: Yes Frequency: Special Occasions Quant: 3-4
== END ==
LOC: PAIN 06:53
PROVIDERS: ATTEND Anesthesiology Pain Medicine
DX: M48.061 Spinal stenosis, lumbar region without neurogenic claudication (principal); M54.12 Radiculopathy, cervical region; I10 Essential (primary) hypertension; M19.90 Unspecified osteoarthritis, unspecified site; E78.5 Hyperlipidemia, unspecified; D25.9 Leiomyoma of uterus, unspecified; F17.200 Nicotine dependence, unspecified, uncomplicated; Z79.899 Other long term (current) drug therapy; Z79.891 Long term (current) use of opiate analgesic

== ENCOUNTER → 2021-02-14 | Outpatient (CLI) | payer OTHER ==
[~2021-02-14] VITALS: Ht 172.7 cm; Wt 58.9 kg
[2021-02-14 11:12] VITALS: BP 162/87
--- NOTE | 2021-02-14 12:04 | NUR ---
Pain Clinic Assessment: 1. History of Osteoarthritis: SPINE B/L HANDS B/L SHOULDERS LEFT KNEE History of Rheumatoid Arthritis: NONE 2. Height: 5 ft. 8 in. 172.7 cm. Weight: 129.8 lb. oz. 58.877 kg. Patient's BMI: 19.7 3. Vital Signs: BP: 162/87 Pulse: 60 Resp: 14 Temp: 02 Sat: 100 ECG Mon: 4. Pain Intensity: 0 5. Fall Risk: Dizziness: N Needs help standing or walking: N Fallen in the last 3 months: N Fall risk comments: 6. Patient on Blood Thinner: None 7. History of Hypertension: Y 8. Opioid Therapy greater than 6 weeks: N Opiate Contract Signed: 02/04/20 9. Risk Assessment Tool Provided: LOW RISK 3 10. Functional Assessment Tool: 57/ 11. Recreational Drug Use: Past greater than 3 mos Drug Type: Tobacco Use: Vaping Tobacco Type: Amount or Packs/day: How Many Years: Alcohol Use: Yes Frequency: Quant:
== END ==
LOC: PAIN 09:51
PROVIDERS: ATTEND Anesthesiology Pain Medicine
DX: M54.12 Radiculopathy, cervical region (principal); M48.062 Spinal stenosis, lumbar region with neurogenic claudication; I10 Essential (primary) hypertension; M19.90 Unspecified osteoarthritis, unspecified site; E78.5 Hyperlipidemia, unspecified; D25.9 Leiomyoma of uterus, unspecified; Z87.891 Personal history of nicotine dependence; Z79.899 Other long term (current) drug therapy; Z88.6 Allergy status to analgesic agent

== ENCOUNTER → 2021-03-14 | Outpatient (CLI) | payer OTHER ==
[~2021-03-14] VITALS: Ht 175.3 cm; Wt 60.4 kg
[2021-03-14 11:34] VITALS: BP 142/88
--- NOTE | 2021-03-14 12:00 | NUR ---
Pain Clinic Assessment: 1. History of Osteoarthritis: SPINE B/L HANDS B/L SHOULDERS LEFT KNEE History of Rheumatoid Arthritis: NONE 2. Height: 5 ft. 9 in. 175.3 cm. Weight: 133.2 lb. oz. 60.419 kg. Patient's BMI: 19.7 3. Vital Signs: BP: 142/88 Pulse: 68 Resp: 14 Temp: 02 Sat: 98 ECG Mon: 4. Pain Intensity: 2-5 W/ACTIVITY 5. Fall Risk: Dizziness: N Needs help standing or walking: N Fallen in the last 3 months: N Fall risk comments: 6. Patient on Blood Thinner: None 7. History of Hypertension: Y 8. Opioid Therapy greater than 6 weeks: N Opiate Contract Signed: 02/04/20 9. Risk Assessment Tool Provided: LOW RISK 3 10. Functional Assessment Tool: 57/70 11. Recreational Drug Use: Past greater than 3 mos Drug Type: Tobacco Use: Vaping Tobacco Type: Amount or Packs/day: How Many Years: Alcohol Use: Yes Frequency: Quant:
== END ==
LOC: PAIN 07:10
PROVIDERS: ATTEND Anesthesiology Pain Medicine
DX: M54.12 Radiculopathy, cervical region (principal); M48.062 Spinal stenosis, lumbar region with neurogenic claudication; I10 Essential (primary) hypertension; M79.605 Pain in left leg; M13.88 Other specified arthritis, other site; E78.5 Hyperlipidemia, unspecified; D25.9 Leiomyoma of uterus, unspecified; Z87.891 Personal history of nicotine dependence; Z90.721 Acquired absence of ovaries, unilateral; Z88.6 Allergy status to analgesic agent; Z88.8 Allergy status to other drugs, medicaments and biological substances; Z79.899 Other long term (current) drug therapy

== ENCOUNTER → 2021-04-11 | Outpatient (CLI) | payer OTHER ==
[~2021-04-11] VITALS: Ht 175.3 cm; Wt 61.8 kg
[2021-04-11 10:59] VITALS: BP 148/85
--- NOTE | 2021-04-11 11:08 | NUR ---
Pain Clinic Assessment: 1. History of Osteoarthritis: SPINE B/L HANDS B/L SHOULDERS LEFT KNEE History of Rheumatoid Arthritis: NONE 2. Height: 5 ft. 9 in. 175.3 cm. Weight: 136.2 lb. oz. 61.780 kg. Patient's BMI: 20.1 3. Vital Signs: BP: 148/85 Pulse: 63 Resp: 14 Temp: 02 Sat: 100 ECG Mon: 4. Pain Intensity: 4 5. Fall Risk: Dizziness: N Needs help standing or walking: N Fallen in the last 3 months: N Fall risk comments: 6. Patient on Blood Thinner: None 7. History of Hypertension: Y 8. Opioid Therapy greater than 6 weeks: N Opiate Contract Signed: 02/04/20 9. Risk Assessment Tool Provided: LOW RISK 3 10. Functional Assessment Tool: 57/ 11. Recreational Drug Use: Past greater than 3 mos Drug Type: Tobacco Use: Vaping Tobacco Type: Amount or Packs/day: How Many Years: Alcohol Use: Yes Frequency: Quant:
== END ==
LOC: PAIN 07:08
PROVIDERS: ATTEND Anesthesiology Pain Medicine
DX: M54.12 Radiculopathy, cervical region (principal); M48.062 Spinal stenosis, lumbar region with neurogenic claudication; I10 Essential (primary) hypertension; M19.90 Unspecified osteoarthritis, unspecified site; E78.5 Hyperlipidemia, unspecified; D25.9 Leiomyoma of uterus, unspecified; F17.200 Nicotine dependence, unspecified, uncomplicated; Z88.0 Allergy status to penicillin; Z88.6 Allergy status to analgesic agent; Z79.899 Other long term (current) drug therapy

== ENCOUNTER → 2021-05-18 | Outpatient (CLI) | payer OTHER ==
[~2021-05-18] VITALS: Ht 175.3 cm; Wt 62.4 kg
[2021-05-18 08:40] VITALS: BP 151/87
--- NOTE | 2021-05-18 08:43 | NUR ---
Pain Clinic Assessment: 1. History of Osteoarthritis: SPINE B/L HANDS B/L SHOULDERS LEFT KNEE History of Rheumatoid Arthritis: NONE 2. Height: 5 ft. 9 in. 175.3 cm. Weight: 137.6 lb. oz. 62.415 kg. Patient's BMI: 20.3 3. Vital Signs: BP: 151/87 Pulse: 72 Resp: 18 Temp: 02 Sat: 100 ECG Mon: 4. Pain Intensity: 2-3 5. Fall Risk: Dizziness: N Needs help standing or walking: N Fallen in the last 3 months: N Fall risk comments: 6. Patient on Blood Thinner: None 7. History of Hypertension: Y 8. Opioid Therapy greater than 6 weeks: N Opiate Contract Signed: 02/04/20 9. Risk Assessment Tool Provided: LOW RISK 3 10. Functional Assessment Tool: 57/ 11. Recreational Drug Use: Past greater than 3 mos Drug Type: Tobacco Use: Vaping Tobacco Type: Amount or Packs/day: How Many Years: Alcohol Use: Yes Frequency: Quant:
== END ==
LOC: PAIN 06:51
PROVIDERS: ATTEND Clinical Nurse Specialist Adult Health
DX: G89.29 Other chronic pain (principal); M54.12 Radiculopathy, cervical region; M48.062 Spinal stenosis, lumbar region with neurogenic claudication; M19.90 Unspecified osteoarthritis, unspecified site; F17.200 Nicotine dependence, unspecified, uncomplicated; Z88.6 Allergy status to analgesic agent; Z88.0 Allergy status to penicillin; Z79.899 Other long term (current) drug therapy

== ENCOUNTER → 2021-06-20 | Outpatient (CLI) | payer OTHER ==
[~2021-06-20] VITALS: Ht 172.7 cm; Wt 62.5 kg
[~2021-06-20] MED LIST changes: +CELEBREX 200 M200 M1 PO
[2021-06-20 08:45] VITALS: BP 149/85
--- NOTE | 2021-06-20 08:51 | NUR ---
Pain Clinic Assessment: 1. History of Osteoarthritis: SPINE B/L HANDS B/L SHOULDERS LEFT KNEE History of Rheumatoid Arthritis: NONE 2. Height: 5 ft. 8 in. 172.7 cm. Weight: 137.8 lb. oz. 62.506 kg. Patient's BMI: 21.0 3. Vital Signs: BP: 149/85 Pulse: 76 Resp: 18 Temp: 02 Sat: 100 ECG Mon: 4. Pain Intensity: 1-2 5. Fall Risk: Dizziness: N Needs help standing or walking: N Fallen in the last 3 months: N Fall risk comments: 6. Patient on Blood Thinner: None 7. History of Hypertension: Y 8. Opioid Therapy greater than 6 weeks: N Opiate Contract Signed: 02/04/20 9. Risk Assessment Tool Provided: LOW RISK 3 10. Functional Assessment Tool: 57/ 11. Recreational Drug Use: Past greater than 3 mos Drug Type: Tobacco Use: Vaping Tobacco Type: Amount or Packs/day: How Many Years: Alcohol Use: Yes Frequency: Special Occasions Quant:
--- NOTE | 2021-06-20 11:53 | HPC ---
[address] [place] [address] PAIN MANAGEMENT CONSULTATION Name: NONI PATEL Room #: [facility].#: [id number] Admission: 06/20/21 Attend Phys: Mary Beaver Discharge: Date of : 60 Report #: [id number] THIS REPORT FOR: cc: Danette Johnson Beth RNP Hocker, Amanda CNS ~ cc: Martin Tracey MD, Winnie Perales MD DATE OF SERVICE: 06/20/2021 CHIEF COMPLAINT: Low back pain and neck pain. HISTORY OF PRESENT ILLNESS: As you know, this is a pleasant 60-year-old female who returns to the pain clinic today for renewal of her methadone therapy. Today, she is rating her pain a 1-2 on a scale of 10. It is located mostly in her neck and in lower back that does occasionally radiate into her left leg. She reports it is an aching, throbbing sensation, though at times can be cramping. Her pain is worse with certain activities or prolonged driving. She finds stretching every morning, finds this very beneficial, helping alleviate some of her discomfort as well as her medications and utilizing ice. The last few days, she has had to decrease her methadone slightly to get to this appointment and has still been able to manage her pain at the 1-2 level. Today, she is requesting renewal of the methadone as well as her anti-inflammatory, Celebrex. This did not give her any GI upset. She does take a high dose of 400 mg total per day. ALLERGIES: ASPIRIN AND PENICILLIN. CURRENT LIST OF MEDICATIONS: Methocarbamol 750 mg p.r.n., Celebrex 200 mg b.i.d., methadone 10 mg in the morning and half a pill in the evening, Wellbutrin, amitriptyline, famotidine, Zyrtec, multivitamin, Tylenol, Lipitor, verapamil, and Zofran p.r.n. PQRS: 1. She has osteoarthritic changes in her spine, hands, shoulders and knees. Denies any rheumatoid arthritis. Height is 5 feet 8 inches, weight is 137. BMI is 21. 2. Vital signs 149/85, pulse is 76, respirations 18, oxygen sat is 100. 3. Pain score is 1-2. 4. Denies dizziness, does not need help walking or standing, has not fallen in the last 3 months. 5. The patient is not on any blood thinners, but does take medicine for hypertension. Opioid therapy is greater than 6 weeks; therefore, an opioid signed contract is on the chart. 6. Risk assessment is low. Functional assessment is 57/70. 7. Recreational drug use in the past. She does vape tobacco products and does occasionally drink alcohol. [address] [address] PAIN MANAGEMENT CONSULTATION Name: NONI PATEL Room #: [facility]#: [id number] Admission: 06/20/21 Attend Phys: Mary Beaver Discharge: Date of : 60 Report #: [id number] According to the prescription monitoring system, the patient last filled her medications in May, filling them in a timely fashion. Morphine mEq according to the CDC guidelines is 45 MME. There is a urine drug screen on the chart that is appropriate for her medications as well. PHYSICAL EXAMINATION: GENERAL: This is alert and orientated, well-developed, well-nourished 60-year-old female who appears her stated age, rating her current pain score of 1-2 today. She is a good historian. HEENT: Normocephalic, atraumatic. Extraocular muscles are intact. She is wearing a mask for COVID precautions. NECK: Without adenopathy or JVD. Tenderness in her cervical region as well as in her right shoulder and trapezius muscle. She has well-healed scars in anterior portion of her neck. Range of motion does increase her pain slightly and has limited movement due to previous surgeries. MUSCULOSKELETAL: She is without significant scoliosis, kyphosis, or lordosis. Upper and lower extremity is symmetrical at 5/5. She has tenderness in the lumbosacral region radiating down her left leg today. She has a normal gait. ASSESSMENT: 1. Cervical radiculopathy. 2. Lumbar stenosis with neurogenic claudication. 3. Nicotine dependency. 4. Osteoarthritis affecting multiple joints. 5. Complex medical management utilizing scheduled opioid medications. PLAN: 1. We discussed treatment options with the patient today. The patient has been able to titrate her medicines slightly to get to her appointment. At times she feels that her pain is well controlled on the lower dose and is able to miss the tablet here and there, which provided her enough to get to her appointment today. We will continue her methadone 10 mg tablets, #45. This will be sent electronically taking one in the morning and half in the evening. The patient will follow up in 1 month. At that time, we may discuss going on a bimonthly visits. 2. We will continue her on her Celebrex 200 mg b.i.d. I will send 3 months' supply, which is 180 pills with 1 additional refill to the pharmacy. The patient does not have any GI discomfort from this medication, though I did encourage her to continue taking it with breakfast and dinner. 3. The patient does continue her Robaxin on an as needed basis and takes amitriptyline nightly. No prescriptions needed for this medication today. Time spent with the patient in consultation, reviewing recent studies, clinical notes and physician reports, physical examination and correlation of findings and medical documentation to determine possible treatment options 12 minutes. [address] [place] [address] PAIN MANAGEMENT CONSULTATION Name: NONI PATEL Room #: [facility]#: [id number] Admission: 06/20/21 Attend Phys: Mary Beaver Discharge: Date of : 60 Report #: [id number] Time spent in preparation for appointment reviewing prescription monitoring system reports, reviewing previous records and proposed treatment options, reviewing current medications 5 minutes. Time spent preparing and sending electronic prescriptions with collaborating physician, Dr. Perales, documentation of visit and plan of treatment 5 minutes. Total time spent 22 minutes. <ELECTRONICALLY SIGNED> By: Mary Beaver 06/20/21 [id number] [id number] Mary Beaver /josi
== END ==
LOC: PAIN 08:02
PROVIDERS: ATTEND Clinical Nurse Specialist Adult Health
DX: M54.12 Radiculopathy, cervical region (principal); M48.062 Spinal stenosis, lumbar region with neurogenic claudication; M19.90 Unspecified osteoarthritis, unspecified site; F17.200 Nicotine dependence, unspecified, uncomplicated; Z88.6 Allergy status to analgesic agent; Z88.0 Allergy status to penicillin; Z79.899 Other long term (current) drug therapy

== ENCOUNTER → 2021-07-20 | Outpatient (CLI) | payer OTHER ==
[~2021-07-20] VITALS: Ht 172.7 cm; Wt 62.7 kg
[2021-07-20 10:25] VITALS: BP 164/86
== END ==
LOC: PAIN 10:04
PROVIDERS: ATTEND Clinical Nurse Specialist Adult Health
DX: M48.062 Spinal stenosis, lumbar region with neurogenic claudication (principal); M54.12 Radiculopathy, cervical region; M13.89 Other specified arthritis, multiple sites; F17.200 Nicotine dependence, unspecified, uncomplicated; Z79.899 Other long term (current) drug therapy; Z79.02 Long term (current) use of antithrombotics/antiplatelets; Z88.0 Allergy status to penicillin; Z88.6 Allergy status to analgesic agent